=== PATIENT | female | born 1950 | race Caucasian/White ===

== ENCOUNTER 2019-12-31 11:20 | Outpatient (CLI) | payer MEDICARE | END 2019-12-31 23:59 | disposition home or self-care (01) | LOC: CFH 11:20 | PROVIDERS: ATTEND Internal Medicine | DX: M51.16 Intervertebral disc disorders with radiculopathy, lumbar region (principal); M41.86 Other forms of scoliosis, lumbar region; M48.02 Spinal stenosis, cervical region; Z78.0 Asymptomatic menopausal state | CPT/HCPCS: 72131; 77080 ==